=== PATIENT | male | born 1965 | race Caucasian/White ===

== ENCOUNTER 2018-06-17 10:20 | Inpatient (IN) | payer MEDICARE ==
[2018-06-17] MEDS ORDERED: Multivitamin Inj 10 ML, Thiamine HCL 100 MG, Magnesium Sulfate 2 GM, Folic Acid 1 MG in... IV ONE (11:12)
[2018-06-17] MEDS ORDERED: Clindamycin 600mg/50mL 600 MG/50 ML BAG IV ONE (11:53)
[2018-06-17 11:55] LABS: % BASOPHILS 0.1 % (0.0-2.0); % EOSINOPHILS 0.8 % (0.0-5.0); % LYMPHOCYTES 13.4 % (20.0-50.0); % MONOCYTES 11.1 % (2.0-10.0); % NEUTROPHILS 74.6 % (40.0-80.0); EOSINOPHILE ABSOLUTE 0.1 Th/cmm (0.1-0.4); HEMOGLOBIN 14.9 gm/dL (12-16); LYMPHOCYTE ABSOLUTE 1.1 Th/cmm (1.5-3.0); MEAN CELL VOLUME 95.2 fl (80-99); MEAN CORPUSCULAR HEMOGLOBIN 32.1 pg (26.0-30.0); MEAN CORPUSCULAR HGB CONC 33.7 pg (28.0-36.0); MEAN PLATELET VOLUME 7.2 fl; MONOCYTE ABSOLUTE 0.9 Th/cmm (0.3-1.0); NEUTROPHILE ABSOLUTE 5.8 Th/cmm (1.8-8.0); PLATELET COUNT 217 Th/cmm (150-400); RED BLOOD COUNT 4.63 Mil/cmm (4.30-5.70); RED CELL DISTRIBUTION WIDTH 12.8 % (11.5-20.0); WHITE BLOOD COUNT 7.9 Th/cmm (4.8-10.8)
[2018-06-17 12:07] LABS: ALB/GLOB RATIO 1.5 (1.0-1.8); ALBUMIN 4.2 gm/dL (4.2-5.5); ALKALINE PHOSPHATASE 39 U/L (34-104); AMYLASE SERUM 26 U/L (29-103); ANION GAP 9.8 (7.0-16.0); BILIRUBIN,TOTAL 1.3 mg/dL (0.3-1.0); BUN - UREA NITROGEN 25 mg/dL (7-25); CALCIUM SERUM 9.6 mg/dL (8.6-10.3); CARBON DIOXIDE 25.8 mEq/L (21.0-31.0); CHLORIDE 103 mEq/L (98-107); CREATININE - SERUM 0.9 mg/dL (0.7-1.3); GFR AFRICAN-AMERICAN > 60.0 ml/min (>90); GFR NON AFRICAN-AMERICAN > 60.0 ml/min; GLUCOSE 108 mg/dL (70-105); LIPASE 22 U/L (11-82); POTASSIUM SERUM 3.6 mEq/L (3.5-5.1); SGOT 107 U/L (13-39); SGPT/ALT 40 U/L (7-52); SODIUM SERUM 135 mEq/L (136-145)
[2018-06-17] MEDS ORDERED: Naloxone 0.4 mg/mL 1mL Vial ONE (12:08)
[2018-06-17] MEDS ORDERED: Naloxone 0.4 mg/mL 1mL Vial IVP STA (12:08)
--- NOTE | 2018-06-17 12:16 | ED Physician Chart ---
ED Chief Complaint/HPI - Patient Information Date Seen:: 06/17/18 Time Seen:: 11:16 Chief Complaint:: ALOC History of Present Illness:: ALOC in a man with a h/o alcoholism and who denies it now. Has had a trach in the past. Denies other past medical history. Was incontinent of stool everywhere. Was found at [place]. Allergies:: Allergies Allergy/AdvReac Type Severity Reaction Status Date / Time Penicillins [PCN] Allergy Verified 06/17/18 11:15 Vitals:: Vital Signs - 8 hr 06/17/18 06/17/18 11:16 11:46 Temp 100.7 F HR 95 86 RR 18 16 BP 131/79 123/71 O2 Sat % 94 97 Historian:: EMS Review:: Nurse's Note Reviewed, Transfer documents Reviewed ED Review of Systems - Review of Systems General/Constitutional: No fever, No chills, No weight loss, No weakness, No diaphoresis, No edema, No loss of appetite Skin: No skin lesions, No rash, No bruising Head: No headache, No light-headedness Eyes: No loss of vision, No pain, No diplopia ENT: No earache, No nasal drainage, No sore throat, No tinnitus Neck: No neck pain, No swelling, No thyromegaly, No stiffness, No mass noted Cardio Vascular: No chest pain, No palpitations, No PND, No orthopnea, No edema Pulmonary: No SOB, No cough, No sputum, No wheezing GI: Other (incontinent of stool) G/U: No dysuria, No frequency, No hematuria Musculoskeletal: No bone or joint pain, No back pain, No muscle pain Endocrine: No polyuria, No polydipsia Psychiatric: Prior psych history Hematopoietic: No bruising, No lymphadenopathy Allergic/Immuno: No urticaria, No angioedema Neurological: Weakness, Other (alterecf) ED Past Medical History - Past Medical History Obtainable: Yes Past Medical History: Other (trach in past; heavy drinker in past) Family Medical History - Family Member Mother History Unknown: Yes ED Physical Exam - Physical Examination Other Gen/Cons comments:: extremely somnolent. arousable to sternal rub. stool everywhere Head: Atraumatic Eyes: Lids, conjuctiva normal, PERRL Other Eyes comments:: dysconjugate gaze. Skin: Nl inspection, No rash, No skin lesions, No ecchymosis, Well hydrated, No lymphadenopathy ENMT: External ears, nose nl Neck: Nontender Respiratory: Nl effort/Exclusion, Clear to Auscultation Cardio Vascular: RRR GI: No tenderness/rebounding/guarding Other GI comments:: distended. Positive fluid wave. : No CVA tenderness Extremities: No tenderness or effusion, Full ROM, No edema Neuro/Psych: Normal motor strength, No focal deficits Other Neuro/Psych comments:: extremely somnolent. Misc: Normal back ED Labs/Radiology/EKG Results - Lab Results Results: Laboratory Tests 06/17/18 06/17/18 11:22 11:36 WBC 7.9 RBC 4.63 Hgb 14.9 Hct 44.0 MCV 95.2 MCH 32.1 H MCHC Differential 33.7 RDW 12.8 Plt Count 217 MPV 7.2 Neutrophils % 74.6 Lymphocytes % 13.4 L Monocytes % 11.1 H Eosinophils % 0.8 Basophils % 0.1 POC Glucose 110 H ED Assessment - Assessment General Assessment: EKG from 12:00:20 p.m. reveals normal sinus rhythm with a flipped t wave in V1 and V2. No response to Romazicon. Response to Narcan Became more somnolent after return from head CT (which I read out as negative). Tried to intubate patient orally. Terrible anatomy (prior trach). Patient woke up after Versed 1 mg IV and succinylcholine 70 mg prior to receiving additional succinylcholine and started talking. Therefore, additional intubation attempts were aborted. ED Septic Shock - . Is Septic Shock (SBP<90, OR Lactate>4 mmol\L) present?: No - <6hrs of presentation: Vital Signs: Vital Signs - 8 hr 06/17/18 06/17/18 11:16 11:46 Temp 100.7 F HR 95 86 RR 18 16 BP 131/79 123/71 O2 Sat % 94 97 ED Reassessment (Disposition) - Reassessment Reassessment Condition:: Improved - Diagnosis Diagnosis:: Rhabdomyolysis, elevated CPK 2888, CPK MB 63.9 Right lower lobe pneumonia (by my reading) Altered level of consciousness. was incontinent of stool in the community. Cirrhosis Elevated ammonia level of 83 (normal is up to 53). Elevated LFT. - Patient Disposition Discharge/Transfer:: Acute Care w/in this hosp Accepting Physician:: Dr. Vu Time Called:: 14:37 Discussion with Medical Provider:: spoke with Dr. Alatorre who stated that we do not have a neurologist on staff who sees the patients and that this patient needs a neurologist. Therefore, Dr. Alatorre asked us to tranfer this patient in an [facility] level higher level of care transfer to a place that has a neurologist on staff. Admitted to:: ICU Spoke to:: Dr. Alatorre Condition at Disposition:: Stable, Improved
[2018-06-17 12:30] LABS: URINE SOURCE CLEAN C
[2018-06-17 12:33] LABS: URINE BILIRUBIN NEGATIVE (NEGATIVE); URINE BLOOD NEGATIVE (NEGATIVE); URINE GLUCOSE (UA) NEGATIVE (NEGATIVE); URINE KETONE TRACE mg/dL (NEGATIVE); URINE LEUKOCYTE ESTERASE NEGATIVE (NEGATIVE); URINE NITRATE NEGATIVE (NEGATIVE); URINE PROTEIN NEGATIVE (NEGATIVE); URINE UROBILINOGEN 0.2 E.U./dL (0.2 - 1.0)
[2018-06-17] MEDS ORDERED: Midazolam 1mg/ml 2 ml vial IV ONE (12:34)
[2018-06-17] MEDS ORDERED: Midazolam 1mg/ml 2 ml vial IV STA (12:40)
[2018-06-17 12:59] LABS: URINE COLOR YELLOW
--- NOTE | 2018-06-17 12:59 | Diagnostic Imaging Report ---
Portable chest x-ray History: Fever, cough Allowing for portable technique the heart size is normal. No focal pulmonary parenchymal processes. No hilar or mediastinal abnormalities. Impression: No acute abnormalities.
--- NOTE | 2018-06-17 12:59 | Diagnostic Imaging Report ---
CT scan of the brain without contrast History: Stroke, CVA Total DLP equals 690 CTDI equals 35.4 Axial sections were obtained from the base of the skull to the vertex. There is a normal ventricular system size. No focal parenchymal lesions are seen. No evidence of any mass effect or shift of midline structures. No extra-axial masses or abnormal fluid collections. Atherosclerotic calcification seen in the region of the vertebral arteries at the base of the skull. Mucosal thickening noted about the right maxillary sinus. Deviation of the nasal septum to the left. Impression: 1. No acute intracerebral abnormalities 2. Atherosclerotic vascular changes 3. Mucosal thickening about the right maxillary sinus
[2018-06-17 13:00] LABS: URINE CLARITY CLOUDY (CLEAR); URINE MICROSCOPIC INDICATED? YES
[2018-06-17 13:01] LABS: URINE BACTERIA OCCASIONAL /hpf (NONE SEEN); URINE EPITHELIAL CELLS NONE SEEN /lpf (FEW); URINE RBC NONE SEEN /hpf (0-5); URINE WBC 0-2 /hpf (0-5)
[2018-06-17 13:04] LABS: INR 1.06 (0.5-1.4)
[2018-06-17 13:13] LABS: AMPHETAMINE URINE NEGATIVE (NEGATIVE); BARBITURATES URINE NEGATIVE (NEGATIVE); BENZODIAZEPINES QUAL URINE NEGATIVE (NEGATIVE); CANNABINOID THC NEGATIVE (NEGATIVE); COCAINE METABOLITE QUAL URINE NEGATIVE (NEGATIVE); METHADONE URINE NEGATIVE (NEGATIVE); METHAMPHETAMINES QUAL URINE NEGATIVE (NEGATIVE); OPIATES (MORPHINE) QUAL. URINE NEGATIVE (NEGATIVE); PHENCYCLIDINE (PCP) URINE NEGATIVE (NEGATIVE); TRICYCLICS (TCA) QUAL. URINE NEGATIVE (NEGATIVE)
[2018-06-17] MEDS ORDERED: Maalox 30 mL Cup PO PRN (15:58)
[2018-06-17] MEDS ORDERED: guaiFENesin 200 MG/10 ML UDC PO PRN (15:58)
[2018-06-17] MEDS: D5-0.9%NS 1,000 ML IV SCH (16:00)
[2018-06-17 16:01] VITALS: BP 145/84
--- NOTE | 2018-06-17 17:19 | History & Physical ---
ADMIT DATE: 06/17/2018 CHIEF COMPLAINT: The patient found down at [facility] pharmacy. HISTORY OF PRESENT ILLNESS: This is a 52-year-old male apparently with psych disorder, homeless, has been walking for almost a day, according to the patient, 100 miles or so. The patient apparently was found down unresponsive almost about to be intubated in the ER. The patient's condition was improved with Narcan. Initial urine toxicology was negative today. PAST MEDICAL HISTORY: As mentioned in the history present illness. MEDICATIONS: He does not know his medications. ALLERGIES: PENICILLIN. FAMILY HISTORY: Noncontributory. SOCIAL HISTORY: Denies smoking or drinking. The patient is homeless. REVIEW OF SYSTEMS: GENERAL: This is limited secondary to the patient's current mental state. We will try to obtain more detailed review of system once the patient is much more able to provide information. Does not have any family members listed. The patient apparently had old records from ____ nursing facility. We will try to get information from them. PHYSICAL EXAMINATION: VITAL SIGNS: Blood pressure 131/70, respirations 16, pulse 75, and temperature 98.4. GENERAL: Elderly male, appears his stated age, appears sunburn, disheveled. NECK: Supple. No mass. LUNGS: Equal breath sounds, few rhonchi. HEART: Regular rate and rhythm without appreciable murmurs. ABDOMEN: Soft, globular. EXTREMITIES: Positive excoriations and some skin abnormality on bilateral foot. LABORATORY DATA: WBC 7.8, hemoglobin 14, platelets 217. Sodium 135, potassium 3.3, BUN 21, creatinine 0.6, glucose 110, total bilirubin 1.3, ammonia 83, creatinine ____. Urine toxicology was negative. ASSESSMENT AND PLAN: 1. Altered level of consciousness. 2. Syncope. 3. Acute rhabdomyolysis. 4. Hyponatremia. 5. Elevated liver function tests. 6. Hepatic encephalopathy. 7. Homelessness. PLAN: We will hydrate the patient. Continue on IV. We will provide the patient H2 kings. We will refer the patient to Psychiatry. We will start the patient on lactulose. We will perform abdominal ultrasound as well. We will continue to monitor closely. JOB# [id number]
[2018-06-17] MEDS: Lactulose 10 Gm/15 mL 30mL UDC PO SCH (18:05)
[2018-06-18] MEDS: D5-0.9%NS 1,000 ML IV SCH ×2 (02:47→13:28)
[2018-06-18 04:34] LABS: % BASOPHILS 0.3 % (0.0-2.0); EOSINOPHILE ABSOLUTE 0.1 Th/cmm (0.1-0.4); MONOCYTE ABSOLUTE 0.8 Th/cmm (0.3-1.0)
[2018-06-18 04:45] LABS: % EOSINOPHILS 1.7 % (0.0-5.0); % LYMPHOCYTES 12.6 % (20.0-50.0); % MONOCYTES 9.8 % (2.0-10.0); % NEUTROPHILS 75.6 % (40.0-80.0); HEMATOCRIT 42.3 % (41.0-60); HEMOGLOBIN 14.1 gm/dL (12-16); MEAN CELL VOLUME 94.9 fl (80-99); MEAN CORPUSCULAR HEMOGLOBIN 31.7 pg (26.0-30.0); MEAN CORPUSCULAR HGB CONC 33.4 pg (28.0-36.0); MEAN PLATELET VOLUME 6.8 fl; NEUTROPHILE ABSOLUTE 5.8 Th/cmm (1.8-8.0); PLATELET COUNT 211 Th/cmm (150-400); RED BLOOD COUNT 4.46 Mil/cmm (4.30-5.70); RED CELL DISTRIBUTION WIDTH 13.2 % (11.5-20.0); WHITE BLOOD COUNT 7.7 Th/cmm (4.8-10.8)
[2018-06-18 05:43] LABS: ALB/GLOB RATIO 1.5 (1.0-1.8); ALBUMIN 3.5 gm/dL (4.2-5.5); ALKALINE PHOSPHATASE 39 U/L (34-104); ANION GAP 9.8 (7.0-16.0); BILIRUBIN,TOTAL 1.1 mg/dL (0.3-1.0); BUN - UREA NITROGEN 10 mg/dL (7-25); CALCIUM SERUM 8.4 mg/dL (8.6-10.3); CARBON DIOXIDE 21.9 mEq/L (21.0-31.0); CHLORIDE 110 mEq/L (98-107); CREATININE - SERUM 0.8 mg/dL (0.7-1.3); CREATININE KINASE 731 U/L (30-223); GFR AFRICAN-AMERICAN > 60.0 ml/min (>90); GFR NON AFRICAN-AMERICAN > 60.0 ml/min; GLUCOSE 112 mg/dL (70-105); POTASSIUM SERUM 3.7 mEq/L (3.5-5.1); SGOT 61 U/L (13-39); SGPT/ALT 34 U/L (7-52); SODIUM SERUM 138 mEq/L (136-145); TOTAL PROTEIN,SERUM 5.9 gm/dL (6.0-8.3)
[2018-06-18] MEDS: Lactulose 10 Gm/15 mL 30mL UDC PO SCH ×2 (08:43→18:00)
--- NOTE | 2018-06-18 09:19 | Diagnostic Imaging Report ---
Portable chest x-ray HISTORY: Pneumonia Heart size difficult to assess with portable technique. Compared with prior exam of 06/17/2018, faint linear density noted in the left lung base. Changes may be associated with subsegmental atelectasis. IMPRESSION: 1. New linear density within the left lung base that may be associated with changes of subsegmental atelectasis.
[2018-06-18 13:11] LABS: HEP A AB IGM Negative (Negative); HEP B CORE IGM Negative (Negative); HEP B SURFACE AG QL Negative (Negative); HEP C ANTIBODY <0.1 s/co ratio (0.0-0.9)
--- NOTE | 2018-06-18 13:41 | Internal Medicine Prog Note ---
Internal Medicine Subjective - Subjective Service Date: 06/18/18 (much more awake and alert today, patient states that he has a history of HTN, schizoaffective disorder and takes atenolol 25mg po daily , depakote 1000mg am+hs and lithium. Patient also did mention that he used to be a resident of [facility] in [place]. [place] ) Patient seen and examined:: with staff Patient is:: awake, verbal Patient Complaints of:: congestion, cough Per staff patient has:: tolerating meds Internal Medicine Objective - Results Result Diagrams: 06/18/18 04:20 06/18/18 04:20 Recent Labs: Laboratory Last Values WBC 7.7 Th/cmm (4.8-10.8) 06/18/18 04:20 RBC 4.46 Mil/cmm (4.30-5.70) 06/18/18 04:20 Hgb 14.1 gm/dL (12-16) 06/18/18 04:20 Hct 42.3 % (41.0-60) 06/18/18 04:20 MCV 94.9 fl (80-99) 06/18/18 04:20 MCH 31.7 pg (26.0-30.0) H 06/18/18 04:20 MCHC Differential 33.4 pg (28.0-36.0) 06/18/18 04:20 RDW 13.2 % (11.5-20.0) 06/18/18 04:20 Plt Count 211 Th/cmm (150-400) 06/18/18 04:20 MPV 6.8 fl 06/18/18 04:20 Neutrophils % 75.6 % (40.0-80.0) 06/18/18 04:20 Lymphocytes % 12.6 % (20.0-50.0) L 06/18/18 04:20 Monocytes % 9.8 % (2.0-10.0) 06/18/18 04:20 Eosinophils % 1.7 % (0.0-5.0) 06/18/18 04:20 Basophils % 0.3 % (0.0-2.0) 06/18/18 04:20 PT 11.0 SECONDS (9.5-11.5) 06/17/18 11:22 INR 1.06 (0.5-1.4) 06/17/18 11:22 PTT (Actin FS) 27.4 SECONDS (26.0-38.0) 06/17/18 11:22 Sodium 138 mEq/L (136-145) 06/18/18 04:20 Potassium 3.7 mEq/L (3.5-5.1) 06/18/18 04:20 Chloride 110 mEq/L (98-107) H 06/18/18 04:20 Carbon Dioxide 21.9 mEq/L (21.0-31.0) 06/18/18 04:20 Anion Gap 9.8 (7.0-16.0) 06/18/18 04:20 BUN 10 mg/dL (7-25) 06/18/18 04:20 Creatinine 0.8 mg/dL (0.7-1.3) 06/18/18 04:20 Est GFR ( Amer) > 60.0 ml/min (>90) 06/18/18 04:20 Est GFR (Non-Af Amer) > 60.0 ml/min 06/18/18 04:20 BUN/Creatinine Ratio 12.5 06/18/18 04:20 Glucose 112 mg/dL (70-105) H 06/18/18 04:20 POC Glucose 110 MG/DL (70 - 105) H 06/17/18 11:36 Whole Bld Lactic Acid 1.65 mmol/L (0.60-1.99) 06/17/18 11:22 Calcium 8.4 mg/dL (8.6-10.3) L 06/18/18 04:20 Phosphorus 3.0 mg/dL (2.5-5.0) 06/17/18 11:22 Magnesium 2.0 mg/dL (1.9-2.7) 06/17/18 11:22 Total Bilirubin 1.1 mg/dL (0.3-1.0) H 06/18/18 04:20 AST 61 U/L (13-39) H 06/18/18 04:20 ALT 34 U/L (7-52) 06/18/18 04:20 Alkaline Phosphatase 39 U/L (34-104) 06/18/18 04:20 Ammonia 92 umol/L (16-53) H 06/18/18 04:20 Creatine Kinase 731 U/L (30-223) H 06/18/18 04:20 CK-MB (CK-2) 14.1 ng/mL (0.6-6.3) H 06/18/18 04:20 Total Protein 5.9 gm/dL (6.0-8.3) L 06/18/18 04:20 Albumin 3.5 gm/dL (4.2-5.5) L 06/18/18 04:20 Globulin 2.4 gm/dL 06/18/18 04:20 Albumin/Globulin Ratio 1.5 (1.0-1.8) 06/18/18 04:20 Amylase 26 U/L (29-103) L 06/17/18 11:22 Lipase 22 U/L (11-82) 06/17/18 11:22 TSH 0.46 uIU/ml (0.34-5.60) 06/18/18 04:20 Urine Source CLEAN C 06/17/18 12:23 Urine Color YELLOW 06/17/18 12:23 Urine Clarity CLOUDY (CLEAR) 06/17/18 12:23 Urine pH 6.0 (4.6 - 8.0) 06/17/18 12:23 Ur Specific [place] 1.010 (1.005-1.030) 06/17/18 12:23 Urine Protein NEGATIVE mg/dL (NEGATIVE) 06/17/18 12: Urine Glucose (UA) NEGATIVE mg/dL (NEGATIVE) 06/17/18 12: Urine Ketones TRACE mg/dL (NEGATIVE) 06/17/18 12: Urine Blood NEGATIVE (NEGATIVE) 06/17/18 12: Urine Nitrate NEGATIVE (NEGATIVE) 06/17/18 12: Urine Bilirubin NEGATIVE (NEGATIVE) 06/17/18 12: Urine Urobilinogen 0.2 E.U./dL (0.2 - 1.0) 06/17/18 12:23 Ur Leukocyte Esterase NEGATIVE (NEGATIVE) 06/17/18 12: Urine RBC NONE SEEN /hpf (0-5) 06/17/18 12:23 Urine WBC 0-2 /hpf (0-5) 06/17/18 12:23 Ur Epithelial Cells NONE SEEN /lpf (FEW) 06/17/18 12:23 Urine Bacteria OCCASIONAL /hpf (NONE SEEN) 06/17/18 12:23 Urine Opiates Screen NEGATIVE (NEGATIVE) 06/17/18 12:23 Urine Methadone Screen NEGATIVE (NEGATIVE) 06/17/18 12:23 Ur Barbiturates Screen NEGATIVE (NEGATIVE) 06/17/18 12:23 Ur Tricyclics Screen NEGATIVE (NEGATIVE) 06/17/18 12:23 Ur Phencyclidine Scrn NEGATIVE (NEGATIVE) 06/17/18 12:23 Amphetamines Screen NEGATIVE (NEGATIVE) 06/17/18 12:23 U Methamphetamines Scrn NEGATIVE (NEGATIVE) 06/17/18 12:23 U Benzodiazepines Scrn NEGATIVE (NEGATIVE) 06/17/18 12:23 U Cocaine Metab Screen NEGATIVE (NEGATIVE) 06/17/18 12:23 U Cannabinoids Screen NEGATIVE (NEGATIVE) 06/17/18 12:23 Ethyl Alcohol < 10 mg/dL (0-10) 06/17/18 11:22 Hepatitis A IgM Ab Negative (Negative) 06/17/18 11:22 Hep Bs Antigen Negative (Negative) 06/17/18 11:22 Hep B Core IgM Ab Negative (Negative) 06/17/18 11:22 Hepatitis C Antibody <0.1 s/co ratio (0.0-0.9) 06/17/18 11:22 - Physical Exam Vitals and I&O: Vital Signs Temp 97 F 06/18/18 12:00 Pulse 76 06/18/18 12:00 Resp 17 06/18/18 12:00 BP 124/69 06/18/18 12:00 Pulse Ox 97 06/18/18 12:00 Intake & Output 06/17/18 06/18/18 06/18/18 18:59 06:59 18:59 Intake Total 50 1000 1720 Output Total 1999 1175 Balance -1950 1000 545 Weight (lbs) 187 lb 194 lb 8 oz Intake: Intake, IV Amount 1000 1000 D5-0.9%Ns 1,000 ml @ 100 1000 1000 mls/hr IV .Q10H VENU Rx#: [id number] Oral 50 720 Output: Urine 1999 1175 Other: # Bowel Movements 1 0 Weight Source Bedscale Bedscale Active Medications: Current Medications Acetaminophen (Tylenol) 650 mg PO Q4H PRN PRN Reason: Pain Or Fever above 101 Stop: 08/16/18 15:57 Al Hydrox/Mg Hydrox/Simethicone (Maalox) 30 ml PO Q6H PRN PRN Reason: Dyspepsia Stop: 08/16/18 15:57 Albuterol Sulfate (Albuterol 2.5mg/3ml Neb Ud) 2.5 mg HHN Q2HRT PRN PRN Reason: Shortness of Breath or Wheeze Stop: 08/16/18 15:57 Guaifenesin (Robitussin) 200 mg PO Q4HR PRN PRN Reason: Cough or Congestion Stop: 08/16/18 15:57 Dextrose/Sodium Chloride (D5-0.9%Ns) 1,000 mls @ 100 mls/hr IV .Q10H VENU Stop: 08/16/18 15:59 Last Admin: 06/18/18 13:28 Dose: 100 mls/hr Ipratropium Lane (Atrovent Neb 0.5mg/2.5ml) 0.5 mg IH Q2HRT PRN PRN Reason: Shortness of Breath or Wheeze Stop: 08/16/18 15:57 Lactulose (Cephulac) 30 gm PO BID VENU Stop: 08/16/18 16:59 Last Admin: 06/18/18 08:43 Dose: 30 gm Lorazepam (Ativan) 1 mg IV Q4H PRN; Protocol PRN Reason: Seizure Stop: 08/16/18 15:57 Nitroglycerin (Nitrostat) 0.4 mg SL Q5MIN PRN PRN Reason: Chest Pain Stop: 08/16/18 15:57 Ondansetron HCl (Zofran) 4 mg IV Q8H PRN PRN Reason: Nausea / Vomiting Stop: 08/16/18 15:57 Last Admin: 06/18/18 01:38 Dose: 4 mg General: weak, alert HEENT: NC/AT, PERRLA Neck: Supple Lungs: ronchi Cardiovascular: RRR, Normal S1, Normal S2, without murmur Abdomen: soft, non-tender, non-distended, positive bowel sound Extremities: excoriation Neurological: alert Internal Medicine Assmt/Plan - Assessment Assessment: ALOC-RESOLVED SYNCOPE ACUTE RHABOMYOLYSIS HYPONATREMIA ELEVATED LFT HEPATIC ENCEPHALOPATHY HOMELESSNESS HTN SCHIZOAFFECTIVE DISORDER - Plan Plan: PSYCH CONSULTATION OK TO MOVE TO TELEMETRY FOLLOW UP CPK LEVEL/CBC/BMP IN AM FALL PRECAUTIONS PT EVAL CONTINUE IVF FOR HYDRATION CONTINUE CURRENT PLAN OF CARE Nutritional Asmnt/Malnutr-PDOC - Dietary Evaluation Malnutrition Findings (Please click <Entered> for more info): Nutritional Asmnt/Malnutrition Start: 06/18/18 10: 34 Text: Status: Complete Freq: Protocol: Document 06/18/18 10:34 OLIVIER (Rec: 06/18/18 10:40 OLIVIER GRANDE- [email or web address]) Nutritional Asmnt/Malnutrition Patient General Information Diagnosis hepatic encephalopathy Pertinent Medical Hx/Surgical Hx s/p pt found down at [facility] after pt reports walking all day, stating ~ 100miles. Toxicology negative and was intubated in ED. Subjective Information Pt asleep at time of visit did not wake to RD greeting Current Diet Order/ Nutrition Support 2g Na Pertinent Medications maalox, D5NS @100ml/hr (2.4L/ day 408kcals/day) Pertinent Labs 06/18: Na 138, K 3.7, Cl 110, CO2 21.9, BUN 10, Cr 0.8, Ca 112, Ca 8.4 Nutritional Hx/Data Height 6 ft 1 in Height (Calculated Centimeters) 185.4 Current Weight (lbs) 194 lb Weight (Calculated Kilograms) 88.0 Weight (Calculated Grams) 69761.9 Body Mass Index (BMI) 25.6 Weight Status Overweight GI Symptoms GI Symptoms None Last BM 06/17 Cultural/Ethnic/Anglican Belief unknown Usual diet at home unknown, homeless Skin Integrity/Comment: justin score 15, intact Estimated Nutritional Goals BEE in Kcals: Using Current wt Calories/Kcals/Kg 28-33kcals/kg Kcals Calculated 2464-2904kcals/day Protein: Using Current wt Protein g/k.2g+/kg Protein Calculated 106g+/day Fluid: ml per MD Nutritional Problem 1. Problem Problem No nutrition diagnosis at this time. Intervention/Recommendation Comments Recommend continuing 2g Na Expected Outcomes/Goals Expected Outcomes/Goals PO intake >75% of meals
[2018-06-18 14:14] LABS: CHOLESTEROL 119 mg/dL (<200); HDL -HIGH DENSITY LIPOPROTEIN 37 mg/dL (23-92); TRIGLYCERIDES 121 mg/dL (<150)
[2018-06-19 05:08] LABS: % BASOPHILS 0.1 % (0.0-2.0); % EOSINOPHILS 4.7 % (0.0-5.0); % LYMPHOCYTES 22.9 % (20.0-50.0); % MONOCYTES 10.3 % (2.0-10.0); EOSINOPHILE ABSOLUTE 0.3 Th/cmm (0.1-0.4); HEMATOCRIT 44.1 % (41.0-60); HEMOGLOBIN 14.8 gm/dL (12-16); LYMPHOCYTE ABSOLUTE 1.4 Th/cmm (1.5-3.0); MEAN CELL VOLUME 93.7 fl (80-99); MEAN CORPUSCULAR HEMOGLOBIN 31.4 pg (26.0-30.0); MEAN CORPUSCULAR HGB CONC 33.5 pg (28.0-36.0); MEAN PLATELET VOLUME 6.5 fl; MONOCYTE ABSOLUTE 0.6 Th/cmm (0.3-1.0); PLATELET COUNT 223 Th/cmm (150-400); RED BLOOD COUNT 4.71 Mil/cmm (4.30-5.70); RED CELL DISTRIBUTION WIDTH 12.8 % (11.5-20.0); WHITE BLOOD COUNT 6.3 Th/cmm (4.8-10.8)
[2018-06-19 05:26] LABS: ANION GAP 9.3 (7.0-16.0); BUN - UREA NITROGEN 8 mg/dL (7-25); CARBON DIOXIDE 23.2 mEq/L (21.0-31.0); CHLORIDE 107 mEq/L (98-107); CREATININE - SERUM 0.7 mg/dL (0.7-1.3); CREATININE KINASE 352 U/L (30-223); GFR AFRICAN-AMERICAN > 60.0 ml/min (>90); GFR NON AFRICAN-AMERICAN > 60.0 ml/min; GLUCOSE 95 mg/dL (70-105); POTASSIUM SERUM 3.5 mEq/L (3.5-5.1); SODIUM SERUM 136 mEq/L (136-145)
[2018-06-19] MEDS: Lactulose 10 Gm/15 mL 30mL UDC PO SCH ×2 (10:42→16:19)
--- NOTE | 2018-06-19 10:56 | Consultation ---
DATE OF CONSULTATION: 06/19/2018 REQUESTING PHYSICIAN: Dr. Vu. REASON FOR CONSULTATION: Rule out psychosis. HISTORY OF PRESENT ILLNESS: This patient is a 52-year-old male, currently homeless. Information obtained by directly interviewing the patient as well as reviewing the admission papers and they are reliable. JUSTIFICATION OF HOSPITALIZATION: The patient has been admitted over here for altered level of consciousness. The patient is reported to have been found unresponsive and brought to the Emergency Room. The patient's condition has improved with the Narcan and the patient is currently on the medical floor. A psychiatric consultation is called to address the issue of his psychosis. Chart is reviewed. The patient is interviewed and he has been mentioning that has been attending the partial program at the ____, but did not like it and has also stopped taking the medications, lithium and Depakote. The patient is not able to figure it out the most of the medications. The patient is also stating that he was tried on several different medications and he thinks that he should not be on any of them and hence he stopped. The patient denies any auditory hallucinations at this time, but the patient is paranoid. The patient is also denying any drug use or alcohol use. PAST PSYCHIATRIC HISTORY: The patient has been hospitalized on multiple occasions. MEDICAL HISTORY: The patient is being currently treated for hyponatremia, hepatic encephalopathy, possibly. SOCIAL HISTORY: The patient is currently homeless, but the patient is stating that he has a sister and she knows that he is here. LEGAL PROBLEMS: None at this time. MENTAL STATUS EXAMINATION: The patient is a 52-year-old, looking his stated age, disheveled, superficially cooperative. Eye contact is noted to be fair. Mood is noted to be depressed. Affect is constricted. Insight and judgment is noted to be still impaired. Impulse control is poor. The patient has been very weak and he is stating that he does not need to be on the medications, would rather stay away from taking any psychotropic medications. The patient is not presenting with any threats to harm self or others. The patient, however, has no place to return to at this time. DIAGNOSTIC IMPRESSION: Schizoaffective disorder. PLAN: To closely monitor the patient. Once the patient is willing he is going to be restarted on the medications. Thank you, Dr. Vu for allowing me to participate in the care of the patient. [facility]# [id number]
--- NOTE | 2018-06-19 12:18 | Internal Medicine Prog Note ---
Internal Medicine Subjective - Subjective Service Date: 06/19/18 (patients sister at bedside and updates given. ) Patient seen and examined:: with staff Patient is:: awake, verbal Patient Complaints of:: congestion, cough Per staff patient has:: tolerating meds Internal Medicine Objective - Results Result Diagrams: 06/19/18 04:50 06/19/18 04:50 Recent Labs: Laboratory Last Values WBC 6.3 Th/cmm (4.8-10.8) 06/19/18 04:50 RBC 4.71 Mil/cmm (4.30-5.70) 06/19/18 04:50 Hgb 14.8 gm/dL (12-16) 06/19/18 04:50 Hct 44.1 % (41.0-60) 06/19/18 04:50 MCV 93.7 fl (80-99) 06/19/18 04:50 MCH 31.4 pg (26.0-30.0) H 06/19/18 04:50 MCHC Differential 33.5 pg (28.0-36.0) 06/19/18 04:50 RDW 12.8 % (11.5-20.0) 06/19/18 04:50 Plt Count 223 Th/cmm (150-400) 06/19/18 04:50 MPV 6.5 fl 06/19/18 04:50 Neutrophils % 62.0 % (40.0-80.0) 06/19/18 04:50 Lymphocytes % 22.9 % (20.0-50.0) 06/19/18 04:50 Monocytes % 10.3 % (2.0-10.0) H 06/19/18 04:50 Eosinophils % 4.7 % (0.0-5.0) 06/19/18 04:50 Basophils % 0.1 % (0.0-2.0) 06/19/18 04:50 PT 11.0 SECONDS (9.5-11.5) 06/17/18 11:22 INR 1.06 (0.5-1.4) 06/17/18 11:22 PTT (Actin FS) 27.4 SECONDS (26.0-38.0) 06/17/18 11:22 Sodium 136 mEq/L (136-145) 06/19/18 04:50 Potassium 3.5 mEq/L (3.5-5.1) 06/19/18 04:50 Chloride 107 mEq/L (98-107) 06/19/18 04:50 Carbon Dioxide 23.2 mEq/L (21.0-31.0) 06/19/18 04:50 Anion Gap 9.3 (7.0-16.0) 06/19/18 04:50 BUN 8 mg/dL (7-25) 06/19/18 04:50 Creatinine 0.7 mg/dL (0.7-1.3) 06/19/18 04:50 Est GFR ( Amer) > 60.0 ml/min (>90) 06/19/18 04:50 Est GFR (Non-Af Amer) > 60.0 ml/min 06/19/18 04:50 BUN/Creatinine Ratio 11.4 06/19/18 04:50 Glucose 95 mg/dL (70-105) 06/19/18 04:50 POC Glucose 110 MG/DL (70 - 105) H 06/17/18 11:36 Whole Bld Lactic Acid 1.65 mmol/L (0.60-1.99) 06/17/18 11:22 Calcium 9.0 mg/dL (8.6-10.3) 06/19/18 04:50 Phosphorus 3.0 mg/dL (2.5-5.0) 06/17/18 11:22 Magnesium 2.0 mg/dL (1.9-2.7) 06/17/18 11:22 Total Bilirubin 1.1 mg/dL (0.3-1.0) H 06/18/18 04:20 AST 61 U/L (13-39) H 06/18/18 04:20 ALT 34 U/L (7-52) 06/18/18 04:20 Alkaline Phosphatase 39 U/L (34-104) 06/18/18 04:20 Ammonia 92 umol/L (16-53) H 06/18/18 04:20 Creatine Kinase 352 U/L (30-223) H 06/19/18 04:50 CK-MB (CK-2) 5.9 ng/mL (0.6-6.3) 06/19/18 04:50 C-Reactive Protein 1.1 mg/dL (0.0-0.9) H 06/19/18 04:50 Total Protein 5.9 gm/dL (6.0-8.3) L 06/18/18 04:20 Albumin 3.5 gm/dL (4.2-5.5) L 06/18/18 04:20 Globulin 2.4 gm/dL 06/18/18 04:20 Albumin/Globulin Ratio 1.5 (1.0-1.8) 06/18/18 04:20 Triglycerides 121 mg/dL (<150) 06/18/18 04:20 Cholesterol 119 mg/dL (<200) 06/18/18 04:20 LDL Cholesterol Direct 57 mg/dL (75-193) L 06/18/18 04:20 HDL Cholesterol 37 mg/dL (23-92) 06/18/18 04:20 Amylase 26 U/L (29-103) L 06/17/18 11:22 Lipase 22 U/L (11-82) 06/17/18 11:22 TSH 0.46 uIU/ml (0.34-5.60) 06/18/18 04:20 Urine Source CLEAN C 06/17/18 12:23 Urine Color YELLOW 06/17/18 12:23 Urine Clarity CLOUDY (CLEAR) 06/17/18 12: Urine pH 6.0 (4.6 - 8.0) 06/17/18 12:23 Ur Specific [place] 1.010 (1.005-1.030) 06/17/18 12:23 Urine Protein NEGATIVE mg/dL (NEGATIVE) 06/17/18 12: Urine Glucose (UA) NEGATIVE mg/dL (NEGATIVE) 06/17/18 12:23 Urine Ketones TRACE mg/dL (NEGATIVE) 06/17/18 12:23 Urine Blood NEGATIVE (NEGATIVE) 06/17/18 12:23 Urine Nitrate NEGATIVE (NEGATIVE) 06/17/18 12: Urine Bilirubin NEGATIVE (NEGATIVE) 06/17/18 12: Urine Urobilinogen 0.2 E.U./dL (0.2 - 1.0) 06/17/18 12:23 Ur Leukocyte Esterase NEGATIVE (NEGATIVE) 06/17/18 12:23 Urine RBC NONE SEEN /hpf (0-5) 06/17/18 12:23 Urine WBC 0-2 /hpf (0-5) 06/17/18 12:23 Ur Epithelial Cells NONE SEEN /lpf (FEW) 06/17/18 12:23 Urine Bacteria OCCASIONAL /hpf (NONE SEEN) 06/17/18 12:23 Urine Opiates Screen NEGATIVE (NEGATIVE) 06/17/18 12:23 Urine Methadone Screen NEGATIVE (NEGATIVE) 06/17/18 12:23 Ur Barbiturates Screen NEGATIVE (NEGATIVE) 06/17/18 12:23 Valproic Acid < 10.0 ug/mL (50.0-100.0) L 06/18/18 04:20 Ur Tricyclics Screen NEGATIVE (NEGATIVE) 06/17/18 12:23 Ur Phencyclidine Scrn NEGATIVE (NEGATIVE) 06/17/18 12:23 Amphetamines Screen NEGATIVE (NEGATIVE) 06/17/18 12:23 U Methamphetamines Scrn NEGATIVE (NEGATIVE) 06/17/18 12:23 U Benzodiazepines Scrn NEGATIVE (NEGATIVE) 06/17/18 12:23 [place] 0.18 mmol/L (0.5-1.0) L 06/18/18 04:20 U Cocaine Metab Screen NEGATIVE (NEGATIVE) 06/17/18 12:23 U Cannabinoids Screen NEGATIVE (NEGATIVE) 06/17/18 12:23 Ethyl Alcohol < 10 mg/dL (0-10) 06/17/18 11:22 Hepatitis A IgM Ab Negative (Negative) 06/17/18 11:22 Hep Bs Antigen Negative (Negative) 06/17/18 11:22 Hep B Core IgM Ab Negative (Negative) 06/17/18 11:22 Hepatitis C Antibody <0.1 s/co ratio (0.0-0.9) 06/17/18 11:22 - Physical Exam Vitals and I&O: Vital Signs Temp 97.3 F 06/19/18 11:39 Pulse 75 06/19/18 11:39 Resp 20 06/19/18 11:39 BP 128/64 06/19/18 11:39 Pulse Ox 98 06/19/18 11:39 Intake & Output 06/18/18 06/19/18 06/19/18 18:59 06:59 18:59 Intake Total 2120 Output Total 1775 Balance 345 Weight (lbs) 194 lb Intake: Intake, IV Amount 1000 D5-0.9%Ns 1,000 ml @ 100 1000 mls/hr IV .Q10H COUNT INCLUDES THE [facility] Rx#: [id number] Oral 1120 Output: Urine 1775 Other: # Voids 2 # Bowel Movements 0 Weight Source Bedscale Active Medications: Current Medications Acetaminophen (Tylenol) 650 mg PO Q4H PRN PRN Reason: Pain Or Fever above 101 Stop: 08/16/18 15:57 Al Hydrox/Mg Hydrox/Simethicone (Maalox) 30 ml PO Q6H PRN PRN Reason: Dyspepsia Stop: 08/16/18 15:57 Albuterol Sulfate (Albuterol 2.5mg/3ml Neb Ud) 2.5 mg HHN Q2HRT PRN PRN Reason: Shortness of Breath or Wheeze Stop: 08/16/18 15:57 Guaifenesin (Robitussin) 200 mg PO Q4HR PRN PRN Reason: Cough or Congestion Stop: 08/16/18 15:57 Ipratropium [place] (Atrovent Neb 0.5mg/2.5ml) 0.5 mg IH Q2HRT PRN PRN Reason: Shortness of Breath or Wheeze Stop: 08/16/18 15:57 Lactulose (Cephulac) 30 gm PO BID COUNT INCLUDES THE [facility] Stop: 08/16/18 16:59 Last Admin: 06/19/18 10:42 Dose: 30 gm Lorazepam (Ativan) 1 mg IV Q4H PRN; Protocol PRN Reason: Seizure Stop: 08/16/18 15:57 Lorazepam (Ativan) 1 mg IVP Q4HR PRN; Protocol PRN Reason: Agitation Stop: 08/17/18 18:20 Nitroglycerin (Nitrostat) 0.4 mg SL Q5MIN PRN PRN Reason: Chest Pain Stop: 08/16/18 15:57 Ondansetron HCl (Zofran) 4 mg IV Q8H PRN PRN Reason: Nausea / Vomiting Stop: 08/16/18 15:57 Last Admin: 06/18/18 01:38 Dose: 4 mg General: weak, alert HEENT: NC/AT, PERRLA Neck: Supple Lungs: ronchi Cardiovascular: RRR, Normal S1, Normal S2, without murmur Abdomen: soft, non-tender, non-distended, positive bowel sound Extremities: excoriation Neurological: alert Internal Medicine Assmt/Plan - Assessment Assessment: ALOC-RESOLVED SYNCOPE ACUTE RHABOMYOLYSIS HYPONATREMIA ELEVATED LFT HEPATIC ENCEPHALOPATHY HOMELESSNESS HTN SCHIZOAFFECTIVE DISORDER - Plan Plan: PT EVAL TOMORROW FOLLOW UP LABS IN AM FALL PRECAUTIONS MAY NEED PLACEMENT PER PATIENT CONTINUE CURRENT PLAN OF CARE Nutritional Asmnt/Malnutr-PDOC - Dietary Evaluation Malnutrition Findings (Please click <Entered> for more info): Nutritional Asmnt/Malnutrition Start: 06/18/18 10: 34 Text: Status: Complete Freq: Protocol: Document 06/18/18 10:34 OLIVIER (Rec: 06/18/18 10:40 OLIVIER GRANDE- FNS1) Nutritional Asmnt/Malnutrition Patient General Information Diagnosis hepatic encephalopathy Pertinent Medical Hx/Surgical Hx s/p pt found down at [facility] pharamcy after pt reports walking all day, stating ~ 100miles. Toxicology negative and was intubated in ED. Subjective Information Pt asleep at time of visit did not wake to RD greeting Current Diet Order/ Nutrition Support 2g Na Pertinent Medications maalox, D5NS @100ml/hr (2.4L/ day 408kcals/day) Pertinent Labs 06/18: Na 138, K 3.7, Cl 110, CO2 21.9, BUN 10, Cr 0.8, Ca 112, Ca 8.4 Nutritional Hx/Data Height 6 ft 1 in Height (Calculated Centimeters) 185.4 Current Weight (lbs) 194 lb Weight (Calculated Kilograms) 88.0 Weight (Calculated Grams) 01884.9 Body Mass Index (BMI) 25.6 Weight Status Overweight GI Symptoms GI Symptoms None Last BM 06/17 Cultural/Ethnic/Yazidism Belief unknown Usual diet at home unknown, homeless Skin Integrity/Comment: justin score 15, intact Estimated Nutritional Goals BEE in Kcals: Using Current wt Calories/Kcals/Kg 28-33kcals/kg Kcals Calculated 2464-2904kcals/day Protein: Using Current wt Protein g/k.2g+/kg Protein Calculated 106g+/day Fluid: ml per MD Nutritional Problem 1. Problem Problem No nutrition diagnosis at this time. Intervention/Recommendation Comments Recommend continuing 2g Na Expected Outcomes/Goals Expected Outcomes/Goals PO intake >75% of meals
[2018-06-19] MEDS ORDERED: D5-0.9%NS 1,000 ML IV SCH (23:30)
[2018-06-20 05:01] LABS: % BASOPHILS 0.5 % (0.0-2.0); % EOSINOPHILS 3.9 % (0.0-5.0); % LYMPHOCYTES 23.3 % (20.0-50.0); % MONOCYTES 9.2 % (2.0-10.0); % NEUTROPHILS 63.1 % (40.0-80.0); EOSINOPHILE ABSOLUTE 0.2 Th/cmm (0.1-0.4); HEMATOCRIT 43.6 % (41.0-60); HEMOGLOBIN 14.5 gm/dL (12-16); LYMPHOCYTE ABSOLUTE 1.5 Th/cmm (1.5-3.0); MEAN CELL VOLUME 94.4 fl (80-99); MEAN CORPUSCULAR HEMOGLOBIN 31.3 pg (26.0-30.0); MEAN CORPUSCULAR HGB CONC 33.2 pg (28.0-36.0); MEAN PLATELET VOLUME 6.3 fl; MONOCYTE ABSOLUTE 0.6 Th/cmm (0.3-1.0); NEUTROPHILE ABSOLUTE 4.1 Th/cmm (1.8-8.0); PLATELET COUNT 243 Th/cmm (150-400); RED BLOOD COUNT 4.62 Mil/cmm (4.30-5.70); RED CELL DISTRIBUTION WIDTH 12.7 % (11.5-20.0); WHITE BLOOD COUNT 6.4 Th/cmm (4.8-10.8)
[2018-06-20 05:36] LABS: ANION GAP 9.9 (7.0-16.0); BUN - UREA NITROGEN 9 mg/dL (7-25); CALCIUM SERUM 8.9 mg/dL (8.6-10.3); CARBON DIOXIDE 24.7 mEq/L (21.0-31.0); CHLORIDE 105 mEq/L (98-107); CREATININE - SERUM 0.8 mg/dL (0.7-1.3); GFR AFRICAN-AMERICAN > 60.0 ml/min (>90); GFR NON AFRICAN-AMERICAN > 60.0 ml/min; GLUCOSE 96 mg/dL (70-105); POTASSIUM SERUM 3.6 mEq/L (3.5-5.1); SODIUM SERUM 136 mEq/L (136-145)
[2018-06-20] MEDS: Albuterol Nebulizer 2.5mg/3mL HHN PRN ×2 (07:24→14:30)
[2018-06-20] MEDS: Ipratropium Neb 0.5 mg/2.5 mL UD IH PRN ×2 (07:24→14:30)
--- NOTE | 2018-06-20 10:08 | Diagnostic Imaging Report ---
Carotid ultrasound HISTORY: Syncope COMPARISON: None Technique: Longitudinal and transverse sonographic sector images of the carotid arteries were obtained with doppler analysis. FINDINGS: Exam is limited due to patient's medical condition. Exam of the right side demonstrates mild to moderate generalized atherosclerotic vascular disease, greatest within the carotid bulbs. No evidence of elevated velocities. Exam of the left side demonstrates mild/moderate atherosclerotic vascular disease, greatest within the left carotid bulb. No evidence of elevated velocities. The vertebral arteries are not visualized. IMPRESSION: [id number] atherosclerotic vascular disease. No evidence of of hemodynamically significant stenosis. The vertebral arteries were not visualized. Consider further assessment with CT or MR angiogram if indicated.
--- NOTE | 2018-06-20 10:10 | Diagnostic Imaging Report ---
Ultrasound abdomen HISTORY: Cirrhosis COMPARISON: None Technique: Sonography of the abdomen was performed in multiple planes. FINDINGS: Exam is limited due to body habitus and bowel gas. The liver demonstrates mild heterogeneous echogenicity with no evidence of focal lesions. There is suboptimal visualization of the left lobe of the liver. The liver measures 18 cm. The gallbladder was not visualized. The common bile duct was also not visualized. Evaluation of the pancreas is limited due to bowel gas. There is suboptimal assessment of the kidneys. The right kidney measures 12.5 x 5.2 cm. The left kidney measures 12.0 x 6.0 seen. The renal margins are not well-defined limiting assessment for focal lesions. No evidence of hydronephrosis. The spleen was also not visualized. IMPRESSION: Limited exam due to body habitus and bowel gas. The gallbladder was not visualized. This may be due to contracted gallbladder or previous cholecystectomy procedure, correlate clinically. Mild hepatomegaly with mildly heterogeneous liver which may reflect underlying hepatocellular disease. The common bile duct and spleen were also not well visualized. If indicated a follow CT examination may be obtained for further assessment.
--- NOTE | 2018-06-20 12:39 | Internal Medicine Prog Note ---
Internal Medicine Subjective - Subjective Service Date: 06/20/18 ([id number] dc summary ) Patient is:: awake, verbal Patient Complaints of:: congestion, cough Per staff patient has:: tolerating meds Internal Medicine Objective - Results Result Diagrams: 06/20/18 04:45 06/20/18 04:45 Recent Labs: Laboratory Last Values WBC 6.4 Th/cmm (4.8-10.8) 06/20/18 04:45 RBC 4.62 Mil/cmm (4.30-5.70) 06/20/18 04:45 Hgb 14.5 gm/dL (12-16) 06/20/18 04:45 Hct 43.6 % (41.0-60) 06/20/18 04:45 MCV 94.4 fl (80-99) 06/20/18 04:45 MCH 31.3 pg (26.0-30.0) H 06/20/18 04:45 MCHC Differential 33.2 pg (28.0-36.0) 06/20/18 04:45 RDW 12.7 % (11.5-20.0) 06/20/18 04:45 Plt Count 243 Th/cmm (150-400) 06/20/18 04:45 MPV 6.3 fl 06/20/18 04:45 Neutrophils % 63.1 % (40.0-80.0) 06/20/18 04:45 Lymphocytes % 23.3 % (20.0-50.0) 06/20/18 04:45 Monocytes % 9.2 % (2.0-10.0) 06/20/18 04:45 Eosinophils % 3.9 % (0.0-5.0) 06/20/18 04:45 Basophils % 0.5 % (0.0-2.0) 06/20/18 04:45 PT 11.0 SECONDS (9.5-11.5) 06/17/18 11:22 INR 1.06 (0.5-1.4) 06/17/18 11:22 PTT (Actin FS) 27.4 SECONDS (26.0-38.0) 06/17/18 11:22 Sodium 136 mEq/L (136-145) 06/20/18 04:45 Potassium 3.6 mEq/L (3.5-5.1) 06/20/18 04:45 Chloride 105 mEq/L (98-107) 06/20/18 04:45 Carbon Dioxide 24.7 mEq/L (21.0-31.0) 06/20/18 04:45 Anion Gap 9.9 (7.0-16.0) 06/20/18 04:45 BUN 9 mg/dL (7-25) 06/20/18 04:45 Creatinine 0.8 mg/dL (0.7-1.3) 06/20/18 04:45 Est GFR ( Amer) > 60.0 ml/min (>90) 06/20/18 04:45 Est GFR (Non-Af Amer) > 60.0 ml/min 06/20/18 04:45 BUN/Creatinine Ratio 11.3 06/20/18 04:45 Glucose 96 mg/dL (70-105) 06/20/18 04:45 POC Glucose 110 MG/DL (70 - 105) H 06/17/18 11:36 Whole Bld Lactic Acid 1.65 mmol/L (0.60-1.99) 06/17/18 11:22 Calcium 8.9 mg/dL (8.6-10.3) 06/20/18 04:45 Phosphorus 3.0 mg/dL (2.5-5.0) 06/17/18 11:22 Magnesium 2.0 mg/dL (1.9-2.7) 06/17/18 11:22 Total Bilirubin 1.1 mg/dL (0.3-1.0) H 06/18/18 04:20 AST 61 U/L (13-39) H 06/18/18 04:20 ALT 34 U/L (7-52) 06/18/18 04:20 Alkaline Phosphatase 39 U/L (34-104) 06/18/18 04:20 Ammonia 92 umol/L (16-53) H 06/18/18 04:20 Creatine Kinase 352 U/L (30-223) H 06/19/18 04:50 CK-MB (CK-2) 5.9 ng/mL (0.6-6.3) 06/19/18 04:50 C-Reactive Protein 1.1 mg/dL (0.0-0.9) H 06/19/18 04:50 Total Protein 5.9 gm/dL (6.0-8.3) L 06/18/18 04:20 Albumin 3.5 gm/dL (4.2-5.5) L 06/18/18 04:20 Globulin 2.4 gm/dL 06/18/18 04:20 Albumin/Globulin Ratio 1.5 (1.0-1.8) 06/18/18 04:20 Triglycerides 121 mg/dL (<150) 06/18/18 04:20 Cholesterol 119 mg/dL (<200) 06/18/18 04:20 LDL Cholesterol Direct 57 mg/dL (75-193) L 06/18/18 04:20 HDL Cholesterol 37 mg/dL (23-92) 06/18/18 04:20 Amylase 26 U/L (29-103) L 06/17/18 11:22 Lipase 22 U/L (11-82) 06/17/18 11:22 TSH 0.46 uIU/ml (0.34-5.60) 06/18/18 04:20 Urine Source CLEAN C 06/17/18 12: Urine Color YELLOW 06/17/18 12: Urine Clarity CLOUDY (CLEAR) 06/17/18 12: Urine pH 6.0 (4.6 - 8.0) 06/17/18 12: Ur Specific [place] 1.010 (1.005-1.030) 06/17/18 12: Urine Protein NEGATIVE mg/dL (NEGATIVE) 06/17/18 12:23 Urine Glucose (UA) NEGATIVE mg/dL (NEGATIVE) 06/17/18 12: Urine Ketones TRACE mg/dL (NEGATIVE) 06/17/18 12: Urine Blood NEGATIVE (NEGATIVE) 06/17/18 12: Urine Nitrate NEGATIVE (NEGATIVE) 06/17/18 12: Urine Bilirubin NEGATIVE (NEGATIVE) 06/17/18 12: Urine Urobilinogen 0.2 E.U./dL (0.2 - 1.0) 06/17/18 12:23 Ur Leukocyte Esterase NEGATIVE (NEGATIVE) 06/17/18 12:23 Urine RBC NONE SEEN /hpf (0-5) 06/17/18 12: Urine WBC 0-2 /hpf (0-5) 06/17/18 12:23 Ur Epithelial Cells NONE SEEN /lpf (FEW) 06/17/18 12:23 Urine Bacteria OCCASIONAL /hpf (NONE SEEN) 06/17/18 12:23 Urine Opiates Screen NEGATIVE (NEGATIVE) 06/17/18 12:23 Urine Methadone Screen NEGATIVE (NEGATIVE) 06/17/18 12:23 Ur Barbiturates Screen NEGATIVE (NEGATIVE) 06/17/18 12:23 Valproic Acid < 10.0 ug/mL (50.0-100.0) L 06/18/18 04:20 Ur Tricyclics Screen NEGATIVE (NEGATIVE) 06/17/18 12:23 Ur Phencyclidine Scrn NEGATIVE (NEGATIVE) 06/17/18 12:23 Amphetamines Screen NEGATIVE (NEGATIVE) 06/17/18 12:23 U Methamphetamines Scrn NEGATIVE (NEGATIVE) 06/17/18 12:23 U Benzodiazepines Scrn NEGATIVE (NEGATIVE) 06/17/18 12:23 [place] 0.18 mmol/L (0.5-1.0) L 06/18/18 04:20 U Cocaine Metab Screen NEGATIVE (NEGATIVE) 06/17/18 12:23 U Cannabinoids Screen NEGATIVE (NEGATIVE) 06/17/18 12:23 Ethyl Alcohol < 10 mg/dL (0-10) 06/17/18 11:22 Hepatitis A IgM Ab Negative (Negative) 06/17/18 11:22 Hep Bs Antigen Negative (Negative) 06/17/18 11:22 Hep B Core IgM Ab Negative (Negative) 06/17/18 11:22 Hepatitis C Antibody <0.1 s/co ratio (0.0-0.9) 06/17/18 11:22 - Physical Exam Vitals and I&O: Vital Signs Temp 97.3 F 06/20/18 11:52 Pulse 70 06/20/18 11:52 Resp 18 06/20/18 11:52 BP 128/75 06/20/18 11:52 Pulse Ox 97 06/20/18 11:52 Intake & Output 06/19/18 06/20/18 06/20/18 18:59 06:59 18:59 Output Total 1200 Balance -1200 Weight (lbs) 187 lb 3.2 oz Output: Urine 1200 Other: Stool Characteristics Brown [place] Weight Source Bedscale Active Medications: Current Medications Acetaminophen (Tylenol) 650 mg PO Q4H PRN PRN Reason: Pain Or Fever above 101 Stop: 08/16/18 15:57 Al Hydrox/Mg Hydrox/Simethicone (Maalox) 30 ml PO Q6H PRN PRN Reason: Dyspepsia Stop: 08/16/18 15:57 Albuterol Sulfate (Albuterol 2.5mg/3ml Neb Ud) 2.5 mg HHN Q2HRT PRN PRN Reason: Shortness of Breath or Wheeze Stop: 08/16/18 15:57 Last Admin: 06/20/18 07:24 Dose: 2.5 mg Guaifenesin (Robitussin) 200 mg PO Q4HR PRN PRN Reason: Cough or Congestion Stop: 08/16/18 15:57 Dextrose/Sodium Chloride (D5-0.9%Ns) 1,000 mls @ 80 mls/hr IV .[id number] VENU Stop: 08/18/18 23:29 Last Admin: 06/20/18 00:21 Dose: 80 mls/hr Ipratropium [place] (Atrovent Neb 0.5mg/2.5ml) 0.5 mg IH Q2HRT PRN PRN Reason: Shortness of Breath or Wheeze Stop: 08/16/18 15:57 Last Admin: 06/20/18 07:24 Dose: 0.5 mg Lactulose (Cephulac) 30 gm PO BID [facility] Stop: 08/16/18 16:59 Last Admin: 06/19/18 16:19 Dose: 30 gm Lorazepam (Ativan) 1 mg IV Q4H PRN; Protocol PRN Reason: Seizure Stop: 08/16/18 15:57 Lorazepam (Ativan) 1 mg IVP Q4HR PRN; Protocol PRN Reason: Agitation Stop: 08/17/18 18:20 Nitroglycerin (Nitrostat) 0.4 mg SL Q5MIN PRN PRN Reason: Chest Pain Stop: 08/16/18 15:57 Olanzapine (Zyprexa) 5 mg PO HS [facility]; Protocol Stop: 08/19/18 20:59 Ondansetron HCl (Zofran) 4 mg IV Q8H PRN PRN Reason: Nausea / Vomiting Stop: 08/16/18 15:57 Last Admin: 06/18/18 01:38 Dose: 4 mg Valproate Sodium (Depakene) 250 mg PO BID [facility]; Protocol Stop: 08/19/18 16:59 General: weak, alert HEENT: NC/AT, PERRLA Neck: Supple Lungs: ronchi Cardiovascular: RRR, Normal S1, Normal S2, without murmur Abdomen: soft, non-tender, non-distended, positive bowel sound Extremities: excoriation Neurological: alert Internal Medicine Assmt/Plan - Assessment Assessment: ALOC-RESOLVED [place]NCOPE ACUTE RHABOMYOLYSIS HYPONATREMIA ELEVATED LFT HEPATIC ENCEPHALOPATHY HOMELESSNESS HTN SCHIZOAFFECTIVE DISORDER - Plan Plan: PT EVAL TOMORROW FOLLOW UP LABS IN AM FALL PRECAUTIONS MAY NEED PLACEMENT PER PATIENT CONTINUE CURRENT PLAN OF CARE Nutritional Asmnt/Malnutr-PDOC - Dietary Evaluation Malnutrition Findings (Please click <Entered> for more info): Nutritional Asmnt/Malnutrition Start: 06/18/18 10: 34 Text: Status: Complete Freq: Protocol: Document 06/18/18 10:34 OLIVIER (Rec: 06/18/18 10:40 OLIVIER HARJINDER- FNS1) Nutritional Asmnt/Malnutrition Patient General Information Diagnosis hepatic encephalopathy Pertinent Medical Hx/Surgical Hx s/p pt found down at [facility] pharam after pt reports walking all day, stating ~ 100miles. Toxicology negative and was intubated in ED. Subjective Information Pt asleep at time of visit did not wake to RD greeting Current Diet Order/ Nutrition Support 2g Na Pertinent Medications maalox, D5NS @100ml/hr (2.4L/ day 408kcals/day) Pertinent Labs 06/18: Na 138, K 3.7, Cl 110, CO2 21.9, BUN 10, Cr 0.8, Ca 112, Ca 8.4 Nutritional Hx/Data Height 6 ft 1 in Height (Calculated Centimeters) 185.4 Current Weight (lbs) 194 lb Weight (Calculated Kilograms) 88.0 Weight (Calculated Grams) 45734.9 Body Mass Index (BMI) 25.6 Weight Status Overweight GI Symptoms GI Symptoms None Last BM 06/17 Cultural/Ethnic/Catholic Belief unknown Usual diet at home unknown, homeless Skin Integrity/Comment: justin score 15, intact Estimated Nutritional Goals BEE in Kcals: Using Current wt Calories/Kcals/Kg 28-33kcals/kg Kcals Calculated 2464-2904kcals/day Protein: Using Current wt Protein g/k.2g+/kg Protein Calculated 106g+/day Fluid: ml per MD Nutritional Problem 1. Problem Problem No nutrition diagnosis at this time. Intervention/Recommendation Comments Recommend continuing 2g Na Expected Outcomes/Goals Expected Outcomes/Goals PO intake >75% of meals
[2018-06-20] MEDS: Lactulose 10 Gm/15 mL 30mL UDC PO SCH ×2 (12:45→17:18)
--- NOTE | 2018-06-20 18:54 | Discharge Summary ---
DATE OF DISCHARGE: 06/20/2018 COVERING FOR: Bj Vu, DO DISCHARGE DIAGNOSES: 1. Altered level of consciousness, which has resolved. 2. Syncope. 3. Acute rhabdomyolysis. 4. Hyponatremia, which has resolved. 5. Elevated LFT, hepatic encephalopathy. 6. Homelessness. 7. Hypertension. 8. Schizoaffective disorder. HISTORY OF PRESENT ILLNESS: This is a 52-year-old male who was admitted to the telemetry unit. He was found to have CVS, unresponsive. For airway protection, the patient was supposed to be intubated; however, after given Narcan, patient was much more awake and alert. PHYSICAL EXAMINATION: GENERAL: Elderly male, appears disheveled, in no apparent distress. VITAL SIGNS: Stable. HEENT: Normocephalic, atraumatic. NECK: Supple. No masses. LUNGS: Clear bilaterally. HEART: Regular rate and rhythm. ABDOMEN: Soft, nontender. HOSPITAL COURSE: During the hospital stay, the patient was initially admitted to the ICU unit. The patient was kept on aggressive IV fluids for hydration, also PPIs. The patient also has psychiatry consultation done. The patient's CRP level is being monitored as well. The patient still noted with weakness. PT evaluation was also ordered. Due to patient's weakness, the patient will be discharged to custodial. CONDITION UPON DISCHARGE: Fair. DISPOSITION: USP. JOB# [id number]
[2018-06-21 04:09] LABS: FOLIC ACID 14.1 ng/mL (>3.0)
--- NOTE | 2018-06-21 08:46 | Consultation ---
DATE OF CONSULTATION: 06/20/2018 NEUROLOGY CONSULTATION HISTORY OF PRESENT ILLNESS: The patient is a 52-year-old found down at [facility] pharmacy. The patient is unresponsive, initially intubated. He improved with Narcan, but drug screen was negative. The patient is now extubated, awake, alert, talking fine. No headaches. PAST MEDICAL HISTORY: He has been walking a lot. The patient apparently has psychosis, has been on Depakote and lithium stopped it. The patient had multiple hospitalizations. MEDICATIONS: Here, the patient now started on lithium and Depakote. REVIEW OF SYSTEMS: Twelve point negative except for above. PHYSICAL EXAMINATION: VITAL SIGNS: Temperature 98.2, blood pressure 129/70, pulse is 73. NECK: Supple. No bruits. HEART: Sounds S1, S2. LUNGS: Clear. NEUROLOGIC: The patient is awake, alert. Answers questions. Speech is normal. He knew what day, what month, what year. Pupils react to light. Full eye movement. No facial weakness. MOTOR: Good strength upper extremities goes down. Lower extremity no atrophy, no muscle aches. Reflexes 1+ to 2. INVESTIGATIONS: CT scan of the head is negative. LABS: Initially when he came in. CPK high 2888, now it is down to 325 yesterday. IMPRESSION: 1. Rhabdomyolysis better. 2. Encephalopathy, improved. 3. History of psychosis, depression. 4. History of elevated liver function tests, hepatic encephalopathy. 5. History of hypertension. PLAN: Continue present treatment. Follow with Psychiatry. JOB# [id number]
== END 2018-06-20 18:10 | DRG 442 ==
LOC: ER 10:20 → ICU 14:50 → TELE 06-19 06:45
PROVIDERS: ADMIT Internal Medicine; ATTEND Internal Medicine
DX: K72.90 Hepatic failure, unspecified without coma (principal); M62.82 Rhabdomyolysis; E87.1 Hypo-osmolality and hyponatremia; R55 Syncope and collapse; F25.9 Schizoaffective disorder, unspecified; K74.60 Unspecified cirrhosis of liver; I10 Essential (primary) hypertension; Z93.0 Tracheostomy status; Z59.0 Homelessness; Z88.0 Allergy status to penicillin
CPT/HCPCS: 36415-UA; 70450-TC; 71045-TC; 76700-TC; 80048-TC; 80053-TC; 80061-TC; 80074-90; 80164-TC; 80178-TC; 80307; 80320-TC; 81001-TC; 82140-TC; 82150-TC; 82550-TC; 82553; 82607-90; 82746-90; 82948-90; 83036-90; 83605; 83690-TC; 83735-TC; 84100-TC; 84443-TC; 85025-TC; 85610-TC; 86141-TC; 90779; 93005; 93880-TC; 94640; 94760; 96375; J0330; J2060; J2250; J2405; J2704; J3411; J3475; J7030; J7042; J7613; X6598; X6614; Z7610